=== PATIENT | female | born 1995 | race Caucasian/White ===

== ENCOUNTER 2017-09-02 11:48 | Emergency (ER) | payer OTHER ==
[2017-09-02] MEDS ORDERED: KETOROLAC TROMETHAMINE 10 MG TABLET PO ONE (13:00)
--- NOTE | 2017-09-02 13:01 | ER Document Report ---
ED General - General Chief Complaint: Flu Symptoms Stated Complaint: DIZZY,SORE THROAT Time Seen by Provider: 09/02/17 12:52 Mode of Arrival: Ambulatory Information source: Patient Notes: 22-year-old female presents with complaints of a sore throat chest wall pain. Patient notes the sore throat initially started a few days prior, was seen in urgent care was given Decadron because her tonsils were so swollen, she notes that the swelling has improved significantly. Patient notes that there is white exudate on it and therefore they treated her with amoxicillin even though the strep and mono were negative. Patient admits to overall generalized achiness TRAVEL OUTSIDE OF THE [place] IN LAST 30 DAYS: No - HPI Onset: Last week Onset/Duration: Better - With the throat however no chest wall tenderness Quality of pain: Burning, Sharp Severity: Mild Pain Level: 1 Associated symptoms: Body/muscle aches, Shortness of breath, Sore throat Exacerbated by: Denies Relieved by: Other Similar symptoms previously: Yes Recently seen / treated by doctor: Yes - Related Data Allergies/Adverse Reactions: Penicillins Allergy (Verified 09/02/17 11:55) Past Medical History - Social History Smoking Status: Current Some Day Smoker Cigarette use (# per day): Yes Chew tobacco use (# tins/day): No Smoking Education Provided: No Frequency of alcohol use: None Drug Abuse: None Family History: Reviewed & Not Pertinent Patient has suicidal ideation: No Patient has homicidal ideation: No Renal/ Medical History: Denies: Hx Peritoneal Dialysis Review of Systems - Review of Systems Notes: REVIEW OF SYSTEMS: CONSTITUTIONAL : Denies fever, chills, or sweats. Denies recent illness. EENT: Admits to throat swelling CARDIOVASCULAR: Admits to chest wall tenderness RESPIRATORY: Admits to cough GASTROINTESTINAL: Denies abdominal pain or distention. Denies nausea, vomiting , or diarrhea. Denies blood in vomitus, stools, or per rectum. Denies black, tarry stools. Denies constipation. GENITOURINARY: Denies difficulty urinating, painful urination, burning, frequency, blood in urine, or discharge. FEMALE GENITOURINARY: Denies vaginal bleeding, heavy or abnormal periods, irregular periods. Denies vaginal discharge or odor. MUSCULOSKELETAL: Denies back or neck pain or stiffness. Denies joint pain or swelling. SKIN: Denies rash, lesions or sores. HEMATOLOGIC : Denies easy bruising or bleeding. LYMPHATIC: Denies swollen, enlarged glands. NEUROLOGICAL: Denies confusion or altered mental status. Denies passing out or loss of consciousness. Denies dizziness or lightheadedness. Denies headache. Denies weakness or paralysis or loss of use of either side. Denies problems with gait or speech. Denies sensory loss, numbness, or tingling. Denies seizures. PSYCHIATRIC: Denies anxiety or stress. Denies depression, suicidal ideation, or homicidal ideation. ALL OTHER SYSTEMS REVIEWED AND NEGATIVE. PHYSICAL EXAMINATION: GENERAL: Well-appearing, well-nourished and in no acute distress. HEAD: Atraumatic, normocephalic. EYES: Pupils equal round and reactive to light, extraocular movements intact, conjunctiva are normal. ENT: Bilateral tonsillar enlargement without any exudate on the left, there is 2 exudates on the right, +1 edema, uvula is midline airway is patent NECK: Normal range of motion, supple without lymphadenopathy LUNGS: Breath sounds clear to auscultation bilaterally and equal. No wheezes rales or rhonchi. HEART: Tachycardic ABDOMEN: Soft, nontender, nondistended abdomen. No guarding, no rebound. No masses appreciated. Female : deferred Musculoskeletal: Normal range of motion, no pitting or edema. No cyanosis. NEUROLOGICAL: Cranial nerves grossly intact. Normal speech, normal gait. Normal sensory, motor exams PSYCH: Normal mood, normal affect. SKIN: Warm, Dry, normal turgor, no rashes or lesions noted. Dictation was performed using [employer] voice recognition software Physical Exam - Vital signs Vitals: Temp Pulse Resp BP Pulse Ox 99.1 F 110 H 16 141/87 H 100 09/02/17 11:54 09/02/17 11:54 09/02/17 11:54 09/02/17 11:54 09/02/17 11:54 Course - Re-evaluation Re-evalutation: 09/02/17 13:33 Patient's evaluation is most consistent with a viral syndrome, I did repeat the strep test as well as ordering influenza. She overall looks quite well her chest wall is easily reproducible on palpation I will treated with anti- inflammatory 09/02/17 14:26 Patient strep and flu were negative, she notes her chest pain has resolved with an anti-inflammatory. 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 I have reevaluated this patient multiple times and no significant life threatening changes are noted. The patient and I have discussed the diagnosis and risks, and we agree with discharging home with close follow-up. We also discussed returning to the Emergency Department immediately if new or worsening symptoms occur. We have discussed the symptoms which are most concerning (e.g., changing or worsening pain, trouble swallowing or breathing, neck stiffness, fever) that necessitate immediate return. - Vital Signs Vital signs: Temp Pulse Resp BP Pulse Ox 99.1 F 110 H 16 141/87 H 100 09/02/17 11:54 09/02/17 11:54 09/02/17 11:54 09/02/17 11:54 09/02/17 11:54 Discharge - Discharge Clinical Impression: Viral pharyngitis URI (upper respiratory infection) Qualifiers: URI type: unspecified viral URI Qualified Code(s): J06.9 - Acute upper respiratory infection, unspecified; B97.89 - Other viral agents as the cause of diseases classified elsewhere; B97.89 - Other viral agents as the cause of diseases classified elsewhere Condition: Stable Disposition: HOME, SELF-CARE Instructions: Viral Syndrome ([facility]) Additional Instructions: Follow up with your physician tomorrow for further care or return to the ED IMMEDIATELY if symptoms worsen or new concerns occur. If you cannot afford to follow up with your primary care physician a list of low cost clinics have been provided at the end of your discharge papers as well. Prescriptions: Naproxen 500 mg PO BID #10 tablet Forms: Return to Work
[2017-09-02 14:32] VITALS: BP 134/80
== END 2017-09-02 14:32 | disposition home or self-care (01) ==
LOC: ER 11:48
DX: J06.9 Acute upper respiratory infection, unspecified (principal); R42 Dizziness and giddiness; M79.1 Myalgia; F17.210 Nicotine dependence, cigarettes, uncomplicated; Z88.0 Allergy status to penicillin
CPT/HCPCS: 99283; 87070; 87880; 87804; J3490